=== PATIENT | male | born 1960 | race African-American/Black ===

== ENCOUNTER 2017-05-05 19:24 | Emergency (ER) | payer BC ==
[~2017-05-05] VITALS: Ht 182.9 cm; Wt 113.4 kg
[2017-05-05] MEDS ORDERED: QUINAPRIL 20 MG20 MG (19:37)
[2017-05-05] MEDS ORDERED: PRAVACHOL40 M1 (19:37)
[2017-05-05] MEDS ORDERED: HYDROCHLOROTHIA25 M2 (19:37)
[2017-05-05] MEDS ORDERED: TESSALON PERLE100 MG PO (19:44)
[2017-05-05] MEDS ORDERED: OSELB75 PO (19:44)
[2017-05-05] MEDS ORDERED: CORICIDIN COLD1 EACH PO (19:44)
[2017-05-05 20:09] VITALS: BP 131/78
== END 2017-05-05 20:10 | disposition home or self-care (01) ==
LOC: M.ERS 19:24
DX: J11.1 Influenza due to unidentified influenza virus with other respiratory manifestations (principal); I10 Essential (primary) hypertension; E78.00 Pure hypercholesterolemia, unspecified; F17.200 Nicotine dependence, unspecified, uncomplicated; Z96.659 Presence of unspecified artificial knee joint